=== PATIENT | male | born 1945 | race Caucasian/White ===

== ENCOUNTER 2023-09-14 09:31 | Emergency (ER) | payer OTHER, SELFPAY ==
[2023-09-14 09:39] VITALS: BP 127/80; PULSE 120; RESP 18; TEMP 36.4; O2SAT 100; BMI 20.9
--- NOTE | 2023-09-14 09:45 | DI.RAD.S_ITS ---
PROCEDURE: XR CHEST 1V INDICATIONS: chest pain TECHNIQUE: One view of the chest was acquired. COMPARISON: None. FINDINGS: Surgical changes and devices: Left axillary clips. Lungs and pleura: Lungs are clear. No pleural effusions or pneumothorax. Mediastinum: Mediastinal contours appear normal. Heart size is normal. Bones and chest wall: No suspicious bony lesions. Overlying soft tissues appear unremarkable. IMPRESSION: No acute cardiopulmonary abnormality is seen. Dictated by: Surinder Longo M.D. on 09/14/2023 at 10:09 Approved by: Surinder Longo M.D. on 09/14/2023 at 10:10
[2023-09-14 09:49] VITALS: PULSE 120; RESP 17; O2SAT 99
--- NOTE | 2023-09-14 09:54 | ED.CHESTPAIN ---
HPI - Chest Pain General Chief Complaint: Chest Pain Stated Complaint: Thinks he is having a Heart attack Time Seen by Provider: 09/14/23 09:54 Source: patient Mode of arrival: Ambulatory Limitations: no limitations History of Present Illness HPI narrative: 77-year-old gentleman woke up this morning complaining of chest heaviness general sense of malaise and just not feeling well. Minor dyspnea. Not having palpitations but does note that his heart feels that it is irregular. He notes that a couple of years ago he had an episode of atrial fibrillation that had similar presentation. He has not currently anticoagulated. Related Data Previous Rx's Medication Instructions Recorded apixaban 5 mg (74 tabs) tablets in See Rx Instructions PO .COMPLEX 09/14/23 a dose pack ([employer] DVT-PE Treat #74 ea 30D Start) metoprolol tartrate 25 mg tablet 25 mg PO BID #60 tabs 09/14/23 Allergies Allergy/AdvReac Type Severity Reaction Status Date / Time No Known Drug Allergies Allergy Verified 09/14/23 09:39 Review of Systems Review of Systems Narrative: Pertinent positive and negative findings as per HPI Patient History Medical History (Updated 09/14/23 @ 11:13 by Marisel Marin MD) Paroxysmal atrial fibrillation Social History Smoking Status: Never smoker Smoking Status: Never smoker alcohol intake frequency: a few times a week Substance Use Type: does not use Exam Initial Vital Signs Initial Vital Signs: Vital Signs Temperature 97.6 F 09/14/23 09:39 Pulse Rate 120 H 09/14/23 09:39 Respiratory Rate 18 09/14/23 09:39 Blood Pressure 127/80 09/14/23 09:39 Pulse Oximetry 100 09/14/23 09:39 Oxygen Delivery Method Room Air 09/14/23 09:39 General: Healthy appearing, in no acute distress. Able to give a complete and coherent history. Well-nourished well-developed HEENT: Moist mucous membranes, normal sclera with reactive pupils, Neck: No JVD, supple Respiratory: Lungs are clear to auscultation, no wheezing no rales no rhonchi. Full and symmetrical air movement Cardiac: Irregular, mild tachycardia, no murmurs Abdomen: Soft, nontender, good bowel tones, no flank pain Skin: Warm and dry, no rashes Neurologic: Grossly neurologically intact with no obvious asymmetries or abnormalities Extremities: No trauma, well perfused Psych: Cooperative, appropriate insight and affect Course Orders Ordered: ED Orders 09/14/23 09:45 XR chest 1V Stat EKG-12 Lead Stat 09/14/23 09:50 BNP [NT-proBNP (BNP-Adult 18+)] Stat Complete Blood Count AUTO DIFF Stat Comprehensive Metabolic Panel Stat Lipase Stat Magnesium Stat PTT Partial Thromboplastin Darryl Stat Prothrombin Time INR Stat Troponin & CK Cardiac Panel Stat Discontinued Medications Aspirin (Aspirin 81 Mg Chew Tab) 324 mg PO NOW ONE Stop: 09/14/23 09:46 Last Admin: 09/14/23 10:13 Dose: 324 mg Documented By: LEWIS Metoprolol Tartrate (Metoprolol Ir 25 Mg Tablet) 25 mg PO NOW ONE Stop: 09/14/23 10:07 Last Admin: 09/14/23 10:18 Dose: 25 mg Documented By: LEWIS Vital Signs Vital signs: Vital Signs - 8 hr 09/14/23 09:39 09/14/23 09:49 09/14/23 10:00 Temperature 97.6 F Pulse Rate 120 H 120 H Respiratory Rate 18 17 Blood Pressure 127/80 119/70 Pulse Oximetry 100 99 Oxygen Delivery Method Room Air 09/14/23 10:00 Temperature Pulse Rate 89 Respiratory Rate 13 Blood Pressure Pulse Oximetry 100 Oxygen Delivery Method Room Air MDM - Chest Pain Lab Data 09/14/23 09:50 09/14/23 09:50 Labs: Lab Results 09/14/23 Range/Units 09:50 WBC 5.3 (4.5-11.0) X10^3/uL RBC 4.90 (4.5-5.9) X10^6/uL Hgb 14.8 (13.5-17.5) g/dL Hct 44.6 (41-53) % MCV 90.9 (80-100) fL MCH 30.3 (26-34) PG MCHC 33.3 (30-36) % RDW 14.1 (11.6-14.8) % Plt Count 209 (150-400) X10^3/uL Neut % (Auto) 52.5 (50-75) % Lymph % (Auto) 34.3 (25-40) % Morrow % (Auto) 10.7 (3-14) % Eos % (Auto) 1.4 L (2-4) % Baso % (Auto) 1.1 (0-2) % Neut # (Auto) 2800 (0972-0513) /uL Lymph # (Auto) 1800 (1814-2485) /uL Morrow # (Auto) 600 (0-900) /uL Eos # (Auto) 100 (0-450) /uL Baso # (Auto) 100 (0-100) /uL PT 10.5 (9.4-12.5) SECONDS INR 0.9 (0.9-1.3) APTT 33 (25.1-36.5) SECONDS Sodium 138 (137-145) mmol/L Potassium 4.4 (3.4-5.1) mmol/L Chloride 107 (98-107) mmol/L Carbon Dioxide 27 (22-32) mmol/L BUN 23 H (9-20) mg/dL Creatinine 0.77 (0.66-1.25) mg/dL Estimated GFR > 60 (>60) mL/min BUN/Creatinine Ratio 29.9 H (6-22) Glucose 137 H (80-110) mg/dL Calcium 9.1 (8.4-10.2) mg/dL Magnesium 2.2 (1.6-2.3) mg/dL Total Bilirubin 1.0 (0.2-1.3) mg/dL AST 46 (17-59) IU/L ALT 42 (<50) IU/L Alkaline Phosphatase 60 (38-126) U/L Total Creatine Kinase 96 (55-170) U/L Troponin I < 0.012 (0.01-0.034) ng/mL NT-Pro-B Natriuret Pep 551 H (<450) pg/mL Total Protein 6.9 (6.3-8.2) g/dL Albumin 4.2 (3.5-5.0) g/dL Globulin 2.7 (1.7-4.1) g/dL Albumin/Globulin Ratio 1.6 (1.0-2.8) Lipase 90 (23-300) U/L MDM Narrative Medical decision making narrative: CC: Chest heaviness and malaise, perhaps palpitations Complicating co-morbidities: History of paroxysmal atrial fibrillation, not anticoagulated Data collected from: patient Differential considered: Atrial fibrillation, acute coronary syndrome, stroke, viral syndrome, significant anemia, electrolyte abnormality Exam documented above, pertinent findings include: Heart rate is relatively tachycardic and irregular. No lower extremity edema. Exam is otherwise benign Lab Test results independently reviewed as above. Pertinent findings: CBC is unremarkable Chemistries show mildly elevated BUN at 23. Blood sugar of 137. Troponin is undetected ProBNP is minimally elevated at 551 No evidence of pancreatitis Independently reviewed EKG: Atrial fibrillation at a rate of 98. No acute ischemic changes Imaging studies independently reviewed: Chest x-ray shows no acute abnormalities, cardiomegaly or congestive heart failure Treatments: Aspirin and 25 mg of metoprolol Re-evaluations: Patient's heart rate is now in the 80s, still in atrial fibrillation. Patient states that he does not notice any abnormal sensation Discussion: 77-year-old gentleman who likely has been in atrial fibrillation for weeks to months most of it rate controlled. He notes that he has a history of being very physically fit and typically notices heart rate in the 50s and 60s and has for most of his life. He notes he has been in the 80s and 90s over the last number of months. He has an appointment at the [facility] tomorrow with his primary care physician. We talked about adding Eliquis as an anticoagulant, metoprolol for rate control, at this point he has not showing signs of acute coronary syndrome significant congestive heart failure or reasons for emergent cardioversion in light of the fact that he likely has been in atrial fibrillation without Eliquis for an undefined period of time.He is given copies of all of his labs encouraged to keep his follow up appointment at the [facility] and safe for discharge Discharge Plan Departure Patient Disposition: Home Clinical Impression: A-fib Qualifiers: Atrial fibrillation type: paroxysmal Qualified Code(s): I48.0 - Paroxysmal atrial fibrillation Instructions: DI for Atrial Fibrillation Activity Restrictions/Additional Instructions: Thank you for coming into You are in atrial fibrillation and I suspect that is what is causing your overall weakness. When your rate slowed down you did not seem to notice the rhythm abnormality quite as much. I suspect you been in and out of this rhythm for a number of months. For that reason, being on an anticoagulant is going to be appropriate and reduce your risk of stroke. 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 I am also going to start you on metoprolol 25 mg b.i.d.. This is both a heart rate and a blood pressure medication. The goal is to make sure that the atrial fibrillation does not go too fast. If you do not have a blood pressure cuff that also measures heart rate I would recommend getting 1 and taking your blood pressures daily to review with your primary care physician I have given you results of blood work and EKG done in the emergency department today, please review these with your primary care physician with your appointment tomorrow If you find that you are getting worse or develop any new symptoms, please feel free to return to the emergency department for further evaluation. Prescriptions: New Eliquis DVT-PE Treat 30D Start 5 mg (74 tabs) tablets,dose pack See Rx Instructions .ROUTE .COMPLEX Qty: 74 0RF Rx Instructions: orally per package directions metoprolol tartrate 25 mg tablet 25 mg PO BID Qty: 60 0RF Referrals: Miscellaneous,Doctor, [Primary Care Provider] - Stand Alone Forms: Patient Portal/API
[2023-09-14 10:00] VITALS: BP 119/70; PULSE 89; RESP 13; O2SAT 100
[2023-09-14 10:00] LABS: Add Manual Diff / Slide Review NO; Basophils Absolute Auto 100 /uL (0-100); Basophils Percent Auto 1.1 % (0-2); Eosinophils Absolute Auto 100 /uL (0-450); Eosinophils Percent Auto 1.4 % (2-4); Hematocrit 44.6 % (41-53); Hemoglobin 14.8 g/dL (13.5-17.5); Lymphocytes Absolute Auto 1800 /uL (1100-4500); Lymphocytes Percent Auto 34.3 % (25-40); Mean Corpuscular HGB Conc 33.3 % (30-36); Mean Corpuscular Hemoglobin 30.3 PG (26-34); Mean Corpuscular Volume 90.9 fL (80-100); Monocytes Absolute Auto 600 /uL (0-900); Monocytes Percent Auto 10.7 % (3-14); Neutrophils Absolute Auto 2800 /uL (1500-7000); Neutrophils Percent Auto 52.5 % (50-75); Platelet Count 209 X10^3/uL (150-400); Red Cell Distribution Width 14.1 % (11.6-14.8); White Blood Cell Count 5.3 X10^3/uL (4.5-11.0)
[2023-09-14 10:09] LABS: INR 0.9 (0.9-1.3); Prothrombin Time 10.5 SECONDS (9.4-12.5)
[2023-09-14 10:12] LABS: PTT Partial Thromboplastin Tim 33 SECONDS (25.1-36.5)
[2023-09-14] MEDS: ASPIRIN 81 MG CHEW TAB 324 MG PO (10:13)
[2023-09-14 10:14] LABS: Alanine Aminotransferase 42 IU/L (<50); Albumin 4.2 g/dL (3.5-5.0); Albumin Globulin Ratio 1.6 (1.0-2.8); Alkaline Phosphatase 60 U/L (38-126); Aspartate Aminotransferase 46 IU/L (17-59); BUN Creatinine Ratio 29.9 (6-22); Blood Urea Nitrogen 23 mg/dL (9-20); Calcium 9.1 mg/dL (8.4-10.2); Carbon Dioxide 27 mmol/L (22-32); Chloride 107 mmol/L (98-107); Creatine Kinase 96 U/L (55-170); Estimated Glomerular Filt Rate > 60 mL/min (>60); Globulin 2.7 g/dL (1.7-4.1); Glucose 137 mg/dL (80-110); HEMOLYSIS 21 (0-50); Lipase 90 U/L (23-300); Magnesium 2.2 mg/dL (1.6-2.3); Potassium 4.4 mmol/L (3.4-5.1); Sodium 138 mmol/L (137-145); Total Protein 6.9 g/dL (6.3-8.2)
[2023-09-14] MEDS: METOPROLOL IR 25 MG TABLET PO (10:18)
[2023-09-14 10:22] LABS: NT-proBNP (BNP-Adult 18+) 551 pg/mL (<450)
--- NOTE | 2023-09-14 10:24 | PC.NURSE ---
PT reports was told he needed a pacemaker 4 years ago due to couplets, pauses, afib. Pt states his last year and has been drinking alcohol more frequently.
[2023-09-14 10:25] LABS: Troponin I < 0.012 ng/mL (0.01-0.034)
[2023-09-14 10:30] VITALS: BP 113/74; PULSE 96; O2SAT 99
[2023-09-14 11:00] VITALS: BP 106/67; PULSE 85; RESP 14; O2SAT 99
== END 2023-09-14 11:40 | disposition home or self-care (01) ==
PROVIDERS: Emergency Provider Emergency Medicine
DX: I48.0 Paroxysmal atrial fibrillation (principal)
CPT/HCPCS: 36415; 71045; 80053; 82550; 83690; 83735; 83880; 84484; 85025; 85610; 85730; 93005; 99284